=== PATIENT | female | born 1995 | race Caucasian/White ===

== ENCOUNTER 2022-09-30 11:59 | Outpatient (CLI) | payer OTHER | END 2022-09-30 12:00 | disposition home or self-care (01) | LOC: CSHULT 11:59 | PROVIDERS: ATTEND Family Medicine | DX: O09.892 Supervision of other high risk pregnancies, second trimester (principal); Z3A.21 21 weeks gestation of pregnancy | CPT/HCPCS: 76805 ==

== ENCOUNTER 2023-01-19 18:00 | Inpatient (IN) | payer OTHER ==
[~2023-01-19 18:00] MED LIST: Bupivacaine 0.25% HCL 30 ML VIAL ONE; Lidocaine 2% MPF 10 ML AMP (For Epidural Use) ONE
[2023-01-19 19:20] VITALS: BMI 37.1
[2023-01-19] MEDS ORDERED: Misoprostol 200 MCG TAB PR PRN (21:49)
[2023-01-19] MEDS ORDERED: Diphenoxylate HCl/Atropine Tablet PO PRN (21:49)
[2023-01-19] MEDS ORDERED: HYDROcodone/Acetaminophen 5/325 mg Tablet PO PRN (21:49)
[2023-01-19] MEDS ORDERED: Fentanyl 100 MCG/2 ML VIAL SLOW IVP PRN (21:49)
[2023-01-19] MEDS ORDERED: Carboprost 250 MCG/ML AMP IM PRN (21:49)
[2023-01-19] MEDS ORDERED: Butorphanol Tartrate 1 MG/ML VIAL SLOW IVP PRN (21:49)
[2023-01-19] MEDS ORDERED: Ondansetron PF 4 MG/2 ML Vial IVP PRN (21:49)
[2023-01-19] MEDS ORDERED: Tranexamic Acid 1,000 MG/10 ML VIAL IVP PRN (21:49)
[2023-01-19] MEDS ORDERED: Ibuprofen 800 MG TAB PO PRN (21:49)
[2023-01-19] MEDS ORDERED: Lidocaine 1% (PF) 30 ML VIAL SC PRN (21:49)
[2023-01-19] MEDS ORDERED: hydrALAZINE 20 MG/ML VIAL SLOW IVP PRN (21:49)
[2023-01-19] MEDS ORDERED: Acetaminophen 500 MG TAB PO PRN (21:49)
[2023-01-19] MEDS ORDERED: Promethazine HCl 25 MG/ML VIAL IM PRN (21:49)
[2023-01-19] MEDS ORDERED: Misoprostol 100 MCG TAB ONE (21:59)
[2023-01-19] MEDS ORDERED: NS w/ Oxytocin 30 units 500 ML IV SCH ×3 (22:00)
[2023-01-19] MEDS: Misoprostol 100 MCG TAB PO SCH (22:02)
[2023-01-19 22:15] LABS: Hemoglobin 11.5 g/dL (12.0-15.5); Mean Corpuscular HGB CONC 33.9 g/dL (32.0-36.0); Mean Corpuscular Hemoglobin 27.8 pg (27.0-33.0); Mean Corpuscular Volume 81.9 fl (81.6-98.3); Mean Platelet Volume 10.8 fl (7.4-10.4); Platelet Count 295 10x3/uL (150-450); Red Blood Cell (RBC) Count 4.14 10x6/uL (3.90-5.03); White Blood Cell (WBC) Count 8.5 10x3/uL (3.5-10.5)
[2023-01-19 22:37] LABS: Syphilis Antibody Nonreactive (Nonreactive); Syphilis Antibody Index 0.08 S/CO (<1.00 Non-Reactive)
[2023-01-19 22:39] LABS: HBSAg Index 0.16 S/CO (0-0.99); Hep B Surf Ag - L&D Non-Reactive S/CO (NonReactive)
[2023-01-20] MEDS: Lactated Ringer's 1,000 ML IV SCH ×3 (04:45→18:37)
[2023-01-20] MEDS ORDERED: Fentanyl 2 mcg/Bup 0.1% Cadd 100 ML ONE (08:49)
[2023-01-20] MEDS ORDERED: diphenhydrAMINE 25 MG CAP PO PRN (14:09)
[2023-01-20] MEDS ORDERED: Promethazine HCl 25 MG/ML VIAL IM PRN (14:09)
[2023-01-20] MEDS ORDERED: Lanolin Ointment 7 GM TUBE TOP PRN (14:09)
[2023-01-20] MEDS ORDERED: Boostrix 0.5 ML (Tdap) VIAL (>/=7 yrs of age) IM ONE (14:09)
[2023-01-20] MEDS ORDERED: Milk Of Magnesia 30 ML UDCUP PO PRN (14:09)
[2023-01-20] MEDS ORDERED: Benzocaine-Menthol 82.5 ML CAN TOP PRN (14:09)
[2023-01-20] MEDS ORDERED: Bisacodyl 10 MG SUPP PR PRN (14:09)
[2023-01-20] MEDS ORDERED: hydrALAZINE 20 MG/ML VIAL SLOW IVP PRN (14:09)
[2023-01-20] MEDS ORDERED: HYDROcodone/Acetaminophen 5/325 mg Tablet PO PRN (14:09)
[2023-01-20] MEDS ORDERED: Ondansetron PF 4 MG/2 ML Vial IVP PRN (14:09)
[2023-01-20] MEDS ORDERED: NIFEdipine XL 60 MG TAB PO SCH (14:30)
[2023-01-20] MEDS: Ibuprofen 800 MG TAB PO SCH ×2 (18:13→22:04)
[2023-01-20] MEDS: Misoprostol 100 MCG TAB PO SCH (18:36)
[2023-01-20] MEDS: Ferrous Sulfate 325 MG TAB PO SCH (18:37)
[2023-01-20] MEDS: Docusate 100 MG CAP PO SCH (20:30)
[2023-01-21] MEDS: Ibuprofen 800 MG TAB PO SCH ×2 (06:07→14:02)
[2023-01-21] MEDS: Docusate 100 MG CAP PO SCH (08:24)
[2023-01-21] MEDS: Ferrous Sulfate 325 MG TAB PO SCH (08:26)
[2023-01-21] MEDS ORDERED: Prenatal Vitamin 1 TAB PO SCH (09:00)
[2023-01-21] MEDS ORDERED: NIFEdipine XL 60 MG TAB PO SCH (09:00)
[2023-01-21] MEDS ORDERED: cloNIDine 0.1 MG TAB PO PRN (14:15)
[2023-01-21 16:10] VITALS: BP 127/74; TEMP 97.5
== END 2023-01-21 17:05 | disposition home or self-care (01) | DRG 807 ==
LOC: CSHLD 18:12 → CSHPP 01-20 15:35
PROVIDERS: ADMIT Family Medicine; ATTEND Family Medicine
PROC: 10E0XZZ Delivery of Products of Conception, External Approach (ICD-10-PCS; principal; 2023-01-19)
DX: O11.4 Pre-existing hypertension with pre-eclampsia, complicating childbirth (principal); Z37.0 Single live birth; O10.02 Pre-existing essential hypertension complicating childbirth; Z3A.37 37 weeks gestation of pregnancy; Z79.899 Other long term (current) drug therapy; Z88.0 Allergy status to penicillin; Z88.2 Allergy status to sulfonamides; Z88.8 Allergy status to other drugs, medicaments and biological substances
CPT/HCPCS: 51702; 85027; 86780; 86850; 86900; 86901; 87340; J2590; J7120; S0020